=== PATIENT | female | born 1980 | race Caucasian/White ===

== ENCOUNTER 2016-07-17 17:51 | Emergency (ER) | payer MEDICAID ==
[~2016-07-17] VITALS: Ht 172.7 cm; Wt 107.1 kg
[~2016-07-17 17:51] MED LIST: AMOX1TAB64 PO; CLIN300C93 PO; DOXY200T3 PO; HYDR-3138 PO; LISI-167 PO; LISI10TA2 PO; METF500T4 PO; ONDA4TAB10 PO
[2016-07-17 17:52] VITALS: BP 169/100
[2016-07-17] MEDS ORDERED: LIDOCAINE 1%, 20ML ONE (18:28)
[2016-07-17 18:49] LABS: HEMOGLOBIN 16.9 g/dL (11.7-16.4)
[2016-07-17 19:03] LABS: BLOOD UREA NITROGEN 13 mg/dL (7-18)
== END 2016-07-17 19:29 | disposition home or self-care (01) ==
LOC: ED 18:17
DX: N61.1 Abscess of the breast and nipple (principal); I10 Essential (primary) hypertension
CPT/HCPCS: 10160; 36415; 80048; 82040; 85025; 87070; 87186; 87205

== ENCOUNTER 2016-10-22 21:21 | Emergency (ER) | payer MEDICAID ==
[~2016-10-22] VITALS: Ht 172.7 cm; Wt 107.8 kg
[2016-10-22] MEDS ORDERED: LIDOCAINE 1%, 20ML ONE (23:26)
[2016-10-23 00:12] VITALS: BP 154/88
[2016-10-23] MEDS ORDERED: CEPHALEXIN 500 MG CAPSULE ONE ×2 (00:15→00:16)
[2016-10-23] MEDS ORDERED: SULFAMETH./TRIMETHOPRIM DS 800MG/160MG TABLET ONE (00:15)
[2016-10-23] MEDS ORDERED: CEPHALEXIN 500 MG CAPSULE PO ONE (00:30)
[2016-10-23] MEDS ORDERED: SULFAMETH./TRIMETHOPRIM DS 800MG/160MG TABLET PO ONE (00:30)
== END 2016-10-23 00:22 | disposition home or self-care (01) ==
LOC: ED 22:16
DX: N61.0 Mastitis without abscess (principal); I10 Essential (primary) hypertension; E11.9 Type 2 diabetes mellitus without complications; E28.2 Polycystic ovarian syndrome
CPT/HCPCS: 10060; 76642

== ENCOUNTER 2016-10-25 09:36 | Emergency (ER) | payer MEDICAID ==
[~2016-10-25] VITALS: Ht 172.7 cm; Wt 106.6 kg
[2016-10-25 11:43] VITALS: BP 139/92
== END 2016-10-25 11:45 | disposition home or self-care (01) ==
LOC: ED 11:39
DX: N61.1 Abscess of the breast and nipple (principal); I10 Essential (primary) hypertension; E28.2 Polycystic ovarian syndrome; F12.10 Cannabis abuse, uncomplicated; E11.65 Type 2 diabetes mellitus with hyperglycemia; Z88.5 Allergy status to narcotic agent
CPT/HCPCS: 10060

== ENCOUNTER 2016-10-26 09:55 | Emergency (ER) | payer MEDICAID ==
[~2016-10-26] VITALS: Ht 172.7 cm; Wt 106.6 kg
[2016-10-26 10:01] VITALS: BP 156/84
== END 2016-10-26 12:01 | disposition home or self-care (01) ==
LOC: ED 11:45
DX: Z48.01 Encounter for change or removal of surgical wound dressing (principal); I10 Essential (primary) hypertension; E11.65 Type 2 diabetes mellitus with hyperglycemia; Z88.5 Allergy status to narcotic agent
CPT/HCPCS: 99283

== ENCOUNTER 2016-10-28 11:28 | Emergency (ER) | payer MEDICAID ==
[~2016-10-28] VITALS: Ht 172.7 cm; Wt 107.2 kg
[2016-10-28 11:30] VITALS: BP 128/80
== END 2016-10-28 12:22 | disposition home or self-care (01) ==
LOC: ED 12:04
DX: L02.213 Cutaneous abscess of chest wall (principal); E11.65 Type 2 diabetes mellitus with hyperglycemia; I10 Essential (primary) hypertension
CPT/HCPCS: 99281

== ENCOUNTER 2016-12-17 08:22 | Emergency (ER) | payer MEDICAID ==
[~2016-12-17] VITALS: Ht 172.7 cm; Wt 103.9 kg
[~2016-12-17 08:22] MED LIST changes: +CLIN300C8 PO; -CLIN300C93 PO; -HYDR-3138 PO; +HYDR-3237 PO
[2016-12-17] MEDS ORDERED: SODIUM CHLORIDE 0.9% 1,000ML IVBOLUS ONE (09:30)
[2016-12-17 09:49] LABS: HEMATOCRIT 46.6 % (34.6-47.8); WHITE BLOOD COUNT 11.1 x10^3/uL (3.4-10)
[2016-12-17 11:06] LABS: BLOOD UREA NITROGEN 7 mg/dL (7-18)
[2016-12-17 11:07] LABS: ASPARTATE AMINO TRANSFERASE 20 U/L (15-37)
[2016-12-17 11:56] VITALS: BP 112/63
== END 2016-12-17 11:59 | disposition home or self-care (01) ==
LOC: ED 08:53
DX: B34.9 Viral infection, unspecified (principal); I10 Essential (primary) hypertension; E07.9 Disorder of thyroid, unspecified; E11.9 Type 2 diabetes mellitus without complications; Z88.5 Allergy status to narcotic agent
CPT/HCPCS: 36415; 71010; 80053; 81001; 84703; 85025; 87086; 93005; 99285

== ENCOUNTER 2016-12-22 21:23 | Emergency (ER) | payer MEDICAID ==
[~2016-12-22] VITALS: Ht 172.7 cm; Wt 101.8 kg
[2016-12-22] MEDS ORDERED: ONDANSETRON 2MG/ML, 2ML ONE (22:44)
[2016-12-22] MEDS ORDERED: KETOROLAC 30 MG/1 ML ONE (22:44)
[2016-12-22] MEDS ORDERED: HYDROmorphone 1 MG/ML, 1ML ONE (22:44)
[2016-12-22 22:58] LABS: HEMATOCRIT 46.2 % (34.6-47.8); HEMOGLOBIN 15.7 g/dL (11.7-16.4); WHITE BLOOD COUNT 10.9 x10^3/uL (3.4-10)
[2016-12-22] MEDS ORDERED: SODIUM CHLORIDE FLUSH 10ML SYR IVF ONE (23:00)
[2016-12-22] MEDS ORDERED: SODIUM CHLORIDE 0.9% 1,000ML IVBOLUS ONE (23:00)
[2016-12-22] MEDS ORDERED: KETOROLAC 30 MG/1 ML IVPush ONE (23:00)
[2016-12-22] MEDS ORDERED: HYDROmorphone 1 MG/ML, 1ML IVPush PRN (23:00)
[2016-12-22] MEDS ORDERED: ONDANSETRON 2MG/ML, 2ML IVPush ONE (23:00)
[2016-12-22 23:09] LABS: ASPARTATE AMINO TRANSFERASE 26 U/L (15-37); BLOOD UREA NITROGEN 13 mg/dL (7-18)
[2016-12-22 23:10] LABS: DAU SCREEN DISCLAIMER
[2016-12-22 23:34] LABS: DIFF TOTAL CELLS COUNTED 100 CELL DIFF
[2016-12-22] MEDS ORDERED: OMNIPAQUE 350 MG/ML, 100ML BOTTLE ONE (23:39)
[2016-12-22 23:49] LABS: ANISOCYTOSIS 1+; VERIFY COUNTS? YES
[2016-12-22 23:50] LABS: POLYCHROMASIA 1+
[2016-12-23 00:55] VITALS: BP 144/74
== END 2016-12-23 00:58 | disposition home or self-care (01) ==
LOC: ED 23:58
DX: N30.90 Cystitis, unspecified without hematuria (principal); R19.7 Diarrhea, unspecified; F12.10 Cannabis abuse, uncomplicated; E11.65 Type 2 diabetes mellitus with hyperglycemia; I10 Essential (primary) hypertension; Z88.5 Allergy status to narcotic agent
CPT/HCPCS: 36415; 71010; 74177; 80053; 80307; 81001; 83605; 83690; 84703; 85025; 87086; 93005; 96361; 96374; 96375; 99285; J1170; J1885; J2405; J7030; Q9967; G0479

== ENCOUNTER 2017-01-25 11:27 | Emergency (ER) | payer MEDICAID ==
[~2017-01-25] VITALS: Ht 172.7 cm; Wt 98.0 kg
[2017-01-25] MEDS ORDERED: SODIUM CHLORIDE FLUSH 10ML SYR IVF ONE (13:00)
[2017-01-25] MEDS ORDERED: ONDANSETRON 2MG/ML, 2ML IVPush ONE (13:00)
[2017-01-25] MEDS ORDERED: SODIUM CHLORIDE 0.9% 1,000ML IVBOLUS ONE (13:00)
[2017-01-25] MEDS ORDERED: KETOROLAC 30 MG/1 ML IVPush ONE (13:00)
[2017-01-25] MEDS ORDERED: KETOROLAC 30 MG/1 ML ONE (13:10)
[2017-01-25] MEDS ORDERED: ONDANSETRON 2MG/ML, 2ML ONE (13:10)
[2017-01-25 13:25] LABS: HEMATOCRIT 50.4 % (34.6-47.8); HEMOGLOBIN 17.2 g/dL (11.7-16.4); WHITE BLOOD COUNT 14.3 x10^3/uL (3.4-10)
[2017-01-25 13:37] LABS: ASPARTATE AMINO TRANSFERASE 15 U/L (15-37); BLOOD UREA NITROGEN 13 mg/dL (7-18)
[2017-01-25 16:05] VITALS: BP 108/60
== END 2017-01-25 16:25 | disposition home or self-care (01) ==
LOC: ED 16:19
DX: K57.92 Diverticulitis of intestine, part unspecified, without perforation or abscess without bleeding (principal); R10.32 Left lower quadrant pain; I10 Essential (primary) hypertension; E11.9 Type 2 diabetes mellitus without complications
CPT/HCPCS: 36415; 74176; 80053; 81001; 84703; 85025; 96361; 96374; 96375; 99285; J1885; J2405; J7030

== ENCOUNTER 2017-04-14 12:58 | Emergency (ER) | payer MEDICAID ==
[~2017-04-14] VITALS: Ht 172.7 cm; Wt 100.2 kg
[2017-04-14] MEDS ORDERED: SODIUM CHLORIDE FLUSH 10ML SYR IVF ONE (16:00)
[2017-04-14] MEDS ORDERED: SODIUM CHLORIDE 0.9% 1,000ML IVBOLUS ONE (16:00)
[2017-04-14 16:22] LABS: MD YES; MEAN CORPUSCULAR HEMOGLOBIN 30.8 pg (27.0-34.8); MEAN CORPUSCULAR VOLUME 90.5 fL (80-100); MEAN PLATELET VOLUME 7.7 fL (7.4-10.4); PLATELET COUNT 304 x10^3/uL (130-400); RED BLOOD COUNT 5.51 x10^6/uL (3.82-5.3); RED CELL DISTRIBUTION WIDTH 13.6 % (9.6-15.2)
[2017-04-14 16:33] LABS: ALANINE AMINOTRANSFERASE 28 U/L (12-78); ALBUMIN 3.5 g/dL (3.4-5.0); ANION GAP 11 mmol/L (5-15); CALCIUM 8.2 mg/dL (8.5-10.1); CHLORIDE 104 mmol/L (98-107); CREATININE 0.78 mg/dL (0.55-1.02)
[2017-04-14 16:38] LABS: ALKALINE PHOSPHATASE 53 U/L (45-117); BILIRUBIN,TOTAL 1.2 mg/dL (0.2-1.0); FREE T4 (FREE THYROXINE) 1.29 ng/dL (0.76-1.46); TOTAL PROTEIN 7.7 g/dL (6.4-8.2)
[2017-04-14 16:49] LABS: BAND#(MANUAL) 0.68 x10^3/uL; BANDS%(MANUAL) 5 % (0-7); LYMPH#(MANUAL) 0.68 x10^3/uL (1-3.4); LYMPHS% (MANUAL) 5 % (22-44); MONOS#(MANUAL) 0.54 x10^3/uL (0.3-2.7); MONOS% (MANUAL) 4 % (2-9); SEG#(MANUAL) 11.61 x10^3/uL (1.8-6.8); SEGS% (MANUAL) 86 % (42-75)
[2017-04-14 16:52] LABS: <PLATELET ESTIMATE> ADEQUATE; <PLT MORPHOLOGY> NORMAL PLT MORPH; <RBC MORPHOLOGY> NORMAL
[2017-04-14 18:35] VITALS: BP 133/95
== END 2017-04-14 18:37 | disposition home or self-care (01) ==
LOC: ED 16:14
DX: R11.2 Nausea with vomiting, unspecified (principal); R19.7 Diarrhea, unspecified; E03.9 Hypothyroidism, unspecified; E11.9 Type 2 diabetes mellitus without complications; I10 Essential (primary) hypertension
CPT/HCPCS: 36415; 71045; 80053; 82962; 84439; 84443; 84703; 85025; 93005; 96360; 99285; J7030

== ENCOUNTER 2017-09-12 09:16 | Emergency (ER) | payer SELFPAY ==
[~2017-09-12] VITALS: Ht 172.7 cm; Wt 108.0 kg
[~2017-09-12 09:16] MED LIST changes: +GABA-827 PO
[2017-09-12 12:09] VITALS: BP 147/90
== END 2017-09-12 12:11 | disposition home or self-care (01) ==
LOC: ED 12:05
DX: N61.1 Abscess of the breast and nipple (principal); E11.40 Type 2 diabetes mellitus with diabetic neuropathy, unspecified; E11.65 Type 2 diabetes mellitus with hyperglycemia; I10 Essential (primary) hypertension; E28.2 Polycystic ovarian syndrome
CPT/HCPCS: 76642; 82962; 99284

== ENCOUNTER 2018-02-12 16:39 | Emergency (ER) | payer OTHER ==
[~2018-02-12] VITALS: Ht 172.7 cm; Wt 108.8 kg
[~2018-02-12 16:39] MED LIST changes: +METF500T17 PO; -METF500T4 PO
[2018-02-12 18:20] VITALS: BP 160/90
== END 2018-02-12 18:24 | disposition home or self-care (01) ==
LOC: ED 18:00
DX: M77.9 Enthesopathy, unspecified (principal); M65.841 Other synovitis and tenosynovitis, right hand
CPT/HCPCS: 29130; 99284

== ENCOUNTER 2018-05-23 10:56 | Emergency (ER) | payer SELFPAY ==
[~2018-05-23] VITALS: Ht 172.7 cm; Wt 107.5 kg
[2018-05-23 12:01] VITALS: BP 137/95
[2018-05-23 12:28] LABS: MEAN CORPUSCULAR HEMOGLOBIN 25.7 pg (27.0-34.8); MEAN CORPUSCULAR HGB CONC 32.4 g/dL (32.4-35.8); MEAN CORPUSCULAR VOLUME 79.4 fL (80-100); MEAN PLATELET VOLUME 7.6 fL (7.4-10.4); PLATELET COUNT 441 x10^3/uL (130-400); RED BLOOD COUNT 5.13 x10^6/uL (3.82-5.3); RED CELL DISTRIBUTION WIDTH 16.4 % (9.6-15.2)
[2018-05-23 12:38] LABS: ALBUMIN 3.3 g/dL (3.4-5.0); ANION GAP 3 mmol/L (5-15); CALCIUM 8.7 mg/dL (8.5-10.1); CHLORIDE 102 mmol/L (98-107)
[2018-05-23 12:43] LABS: ALANINE AMINOTRANSFERASE 27 U/L (12-78); ALKALINE PHOSPHATASE 72 U/L (45-117); BILIRUBIN,TOTAL 0.9 mg/dL (0.2-1.0); CREATININE 0.77 mg/dL (0.55-1.02); TOTAL PROTEIN 8.1 g/dL (6.4-8.2)
--- NOTE | 2018-05-23 12:48 | NUR ---
NO ANSWER WHEN CALLED FOR A ROOM AT THIS TIME.
[2018-05-23 12:51] LABS: MD MORPH REVIEW ONLY
[2018-05-23 12:52] LABS: BASOPHILS # (AUTO) 0.07 x10^3/uL (0-0.1); BASOPHILS % (AUTO) 0 % (0-1); EOSINOPHILS # (AUTO) 0.11 x10^3/uL (0-0.4); EOSINOPHILS % (AUTO) 1 % (1-7); LYMPHOCYTES % (AUTO) 13 % (22-44); MONOCYTES # (AUTO) 1.46 x10^3/uL (0.2-0.8); MONOCYTES % (AUTO) 7 % (2-9); NEUTROPHILS # (AUTO) 15.52 x10^3/uL (1.8-6.8); NEUTROPHILS % (AUTO) 79 % (42-75)
[2018-05-23 12:53] LABS: <PLATELET ESTIMATE> INCREASED; <PLT MORPHOLOGY> NORMAL PLT MORPH; ANISOCYTOSIS 1+; MICROCYTOSIS 1+; POLYCHROMASIA 1+
--- NOTE | 2018-05-23 13:24 | NUR ---
1312 - NO ANS 1324 - NO ANS
[2018-05-24] MEDS ORDERED: METR500T PO (13:12)
[2018-05-24] MEDS ORDERED: CLIN300C8 PO (13:13)
[2018-05-24] MEDS ORDERED: IBUP-1222 PO (13:15)
== END 2018-05-23 13:26 | disposition left against medical advice (07) ==
LOC: ED 13:20
DX: N89.8 Other specified noninflammatory disorders of vagina (principal); R50.9 Fever, unspecified; M79.10 Myalgia, unspecified site
CPT/HCPCS: 36415; 80053; 84703; 85025; 99283

== ENCOUNTER 2018-05-23 14:58 | Observation (INO) | payer OTHER ==
[~2018-05-23] VITALS: Ht 172.7 cm; Wt 107.7 kg
[2018-05-23] MEDS ORDERED: CEFTRIAXONE PMX 1GM/50ML 50 ML ONE (15:28)
[2018-05-23] MEDS ORDERED: KETOROLAC 30 MG/1 ML ONE (15:28)
[2018-05-23] MEDS ORDERED: CEFTRIAXONE PMX 1GM/50ML 50 ML IV ONE (15:30)
[2018-05-23] MEDS ORDERED: SODIUM CHLORIDE 0.9% 1,000ML IVBOLUS ONE (15:30)
[2018-05-23] MEDS ORDERED: KETOROLAC 30 MG/1 ML IVPush ONE (15:30)
[2018-05-23] MEDS ORDERED: SODIUM CHLORIDE FLUSH 10ML SYR IVF ONE (15:30)
[2018-05-23 15:43] LABS: CULTURE INDICATED? YES; MICROSCOPIC INDICATED
[2018-05-23 16:59] LABS: CLUE CELLS PRESENT (NONE SEEN); WET PREP WBCS FEW (FEW)
[2018-05-23] MEDS ORDERED: OMNIPAQUE 350 MG/ML, 100ML BOTTLE ONE (17:27)
--- NOTE | 2018-05-23 17:46 | NUR ---
pt resting on gurney, rr even and unlabored. vss. pt denies needs or pain att. awaiting lab and imaging results
--- NOTE | 2018-05-23 17:49 | NUR ---
pts chart up for recheck
[2018-05-23] MEDS ORDERED: METRONIDAZOLE PMX 500MG/100ML 100 ML ONE (17:58)
[2018-05-23] MEDS ORDERED: METRONIDAZOLE PMX 500MG/100ML 100 ML IV ONE (18:00)
--- NOTE | 2018-05-23 18:44 | NUR ---
GYNOCOLOGY TO SEE PT
--- NOTE | 2018-05-23 18:49 | NUR ---
RN CASE MGR AT BEDSIDE
[2018-05-23] MEDS ORDERED: LIDOCAINE-MPF 1%, 5ML ONE (18:55)
[2018-05-23] MEDS ORDERED: L.E.T SOLUTION TP ONE (18:55)
[2018-05-23] MEDS ORDERED: FENTANYL PF 250 MCG/5ML ONE (19:29)
[2018-05-23] MEDS ORDERED: METOCLOPRAMIDE 5 MG/ML, 2ML ONE (19:31)
[2018-05-23] MEDS ORDERED: ROCURONIUM 10MG/ML,5ML ONE ×2 (19:32→19:46)
[2018-05-23] MEDS ORDERED: PROPOFOL 10 MG/ML, 20ML ONE (19:46)
[2018-05-23] MEDS ORDERED: BUPIVACAINE/PF 0.5% ONE (19:46)
[2018-05-23] MEDS ORDERED: CEFAZOLIN 1,000 MG ONE ×2 (19:46)
[2018-05-23] MEDS ORDERED: SUCCINYLCHOLINE 20 MG/ML, 10ML ONE (19:46)
[2018-05-23] MEDS ORDERED: ONDANSETRON 2MG/ML, 2ML ONE (19:51)
[2018-05-23] MEDS ORDERED: hydrALAzine 20 MG/ML, 1ML IV PRN (20:00)
[2018-05-23] MEDS ORDERED: OXYcodone 5 MG/5 ML ORAL.SOL UDC PO PRN (20:00)
[2018-05-23] MEDS ORDERED: LABETALOL 5MG/ML, 20ML IV PRN (20:00)
[2018-05-23] MEDS ORDERED: ONDANSETRON 2MG/ML, 2ML IV PRN (20:00)
[2018-05-23] MEDS ORDERED: FENTANYL PF 100 MCG/2ML IV PRN (20:00)
[2018-05-23] MEDS ORDERED: HYDROmorphone 2 MG/ML, 1ML IVPush PRN (20:00)
[2018-05-23] MEDS ORDERED: PROMETHAZINE 25 MG/ML, 1ML IV PRN (20:00)
[2018-05-23] MEDS ORDERED: MEPERIDINE/PF 25MG/0.5ML IVPush PRN (20:00)
[2018-05-23] MEDS ORDERED: ACETAMINOPHEN 325 MG TABLET PO PRN (20:00)
[2018-05-23] MEDS ORDERED: IBUPROFEN 600 MG TABLET PO PRN (20:30)
[2018-05-23 20:35] LABS: ALBUMIN 3.2 g/dL (3.4-5.0); BILIRUBIN, DIRECT 0.2 mg/dL (0.1-0.2)
[2018-05-23 20:42] LABS: BILIRUBIN,INDIRECT 0.6 mg/dL (0.0-2.0); BILIRUBIN,TOTAL 0.8 mg/dL (0.2-1.0); TOTAL PROTEIN 7.9 g/dL (6.4-8.2)
[2018-05-23 21:09] LABS: HEMOGLOBIN A1C 8.4 % (4.2-6.3)
[2018-05-23] MEDS: INSULIN LISPRO 100 UNITS/ML, PEN SQ-INSULIN SCH (23:13)
[2018-05-24 00:05] VITALS: BP 102/61
[2018-05-24 04:05] VITALS: BP 109/69
[2018-05-24 07:12] VITALS: BP 115/71
[2018-05-24 07:15] VITALS: BP 112/72
[2018-05-24] MEDS: INSULIN LISPRO 100 UNITS/ML, PEN SQ-INSULIN SCH ×2 (07:43→11:47)
[2018-05-24 12:30] VITALS: BP 129/80
[2018-05-24] MEDS ORDERED: CEFTRIAXONE PMX 1GM/50ML 50 ML IV ONE (13:00)
[2018-05-24] MEDS ORDERED: METRONIDAZOLE PMX 500MG/100ML 100 ML IV ONE (13:00)
[2018-05-24] MEDS ORDERED: METR500T PO (13:12)
[2018-05-24] MEDS ORDERED: CLIN300C8 PO (13:13)
[2018-05-24] MEDS ORDERED: IBUP-1222 PO (13:15)
== END 2018-05-24 16:25 | disposition home or self-care (01) ==
LOC: ED 17:44 → EDIP 20:03 → 4NOR 21:32 → DCLOUNGE 05-24 16:11
PROVIDERS: ADMIT Obstetrics & Gynecology; ATTEND Obstetrics & Gynecology
DX: N76.4 Abscess of vulva (principal); E11.40 Type 2 diabetes mellitus with diabetic neuropathy, unspecified; E11.65 Type 2 diabetes mellitus with hyperglycemia; E28.2 Polycystic ovarian syndrome; E66.9 Obesity, unspecified; I10 Essential (primary) hypertension
CPT/HCPCS: 36415; 56405; 74177; 80076; 81001; 82962; 83036; 86592; 86780; 86803; 87070; 87075; 87076; 87077; 87086; 87205; 87210; 87491; 87529; 87591; 87808; 96365; 96366; 96368; 96372; 96375; 99284; G0378; J0330; J0690; J0696; J1815; J1885; J2405; J2704; J2765; J3010; J3490; J7030; Q9967

== ENCOUNTER 2018-09-24 17:25 | Emergency (ER) | payer SELFPAY ==
[~2018-09-24] VITALS: Ht 172.7 cm; Wt 105.0 kg
[~2018-09-24 17:25] MED LIST changes: +IBUP-1222 PO; +METR500T PO
[2018-09-24 17:52] VITALS: BP 163/94
--- NOTE | 2018-09-24 17:54 | NUR ---
PT PRESENTING TO ER FOR SORE THROAT AND ABNORMAL VAGINAL DISCHARGE FOR "A FEW WEEKS". PT DX AND TREATED IN THE PAST FOR SYPHALIS. UNPROTECTED SEX AND NOW EXPERIENCING SIMILAR SYMPTOMS. REPORTS PAINFUL URINATION. NO C/O ABD OR BACK PAIN. PA AT BEDSIDE FOR ASSESSMENT. CONNECTED TO MONITORS, TACHY AND HTN. CALL LIGHT WITHIN REACH
[2018-09-24] MEDS ORDERED: BICILLIN-LA 2,400,000 UNITS/4 ML IM ONE (18:00)
[2018-09-24] MEDS ORDERED: AZITHROMYCIN 500 MG TABLET PO ONE (18:00)
[2018-09-24] MEDS ORDERED: CEFTRIAXONE 250 MG IM ONE (18:00)
--- NOTE | 2018-09-24 18:25 | NUR ---
UA COLLECTED AND SENT. BLOOD SUGAR 230. PELVIC SET UP IN ROOM. PT TO BE MEDICATED
[2018-09-24] MEDS ORDERED: CEFTRIAXONE 250 MG ONE (18:27)
[2018-09-24] MEDS ORDERED: AZITHROMYCIN 500 MG TABLET ONE (18:27)
[2018-09-24] MEDS ORDERED: LIDOCAINE-MPF 1%, 2ML ONE (18:28)
--- NOTE | 2018-09-24 18:30 | NUR ---
PELVIC EXAM IN PROGRESS
[2018-09-24 18:42] LABS: HCG UR SG 1.034 (1.003-1.030); MICROSCOPIC AUTO
[2018-09-24 18:46] LABS: CLUE CELLS NONE SEEN (NONE SEEN); WET PREP WBCS FEW (FEW)
[2018-09-24 18:47] LABS: CULTURE INDICATED? YES
--- NOTE | 2018-09-24 18:47 | NUR ---
medicated per emar
== END 2018-09-24 19:35 | disposition home or self-care (01) ==
LOC: ED 18:17
DX: A74.9 Chlamydial infection, unspecified (principal); A54.9 Gonococcal infection, unspecified; A53.9 Syphilis, unspecified; I10 Essential (primary) hypertension; E11.9 Type 2 diabetes mellitus without complications
CPT/HCPCS: 36415; 81001; 81025; 82962; 86592; 87086; 87210; 87491; 87591; 87808; 96372; 99283; J0561; J0696